=== PATIENT | male | born 1990 | race Two or more races ===

== ENCOUNTER 2024-01-22 13:26 | Emergency (ER) | payer MEDICAID ==
[~2024-01-22] VITALS: Ht 170.2 cm; Wt 72.6 kg
[2024-01-22 13:50] VITALS: BP 135/77; TEMP 98.2; O2SAT 100
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
[2024-01-22 14:13] LABS: BASOPHILS # (AUTO) 0.1 K/uL (0.0-0.2); BASOPHILS % (AUTO) 0.4 % (0.0-2.0); HEMATOCRIT 44 % (39-51); HEMOGLOBIN 14.7 g/dL (13.5-17.5); LYMPHOCYTES # (AUTO) 1.5 K/uL (0.8-4.8); LYMPHOCYTES % (AUTO) 11.2 % (20.0-44.0); MEAN CORPUSCULAR HEMOGLOBIN 31 PG (26.0-33.0); MEAN CORPUSCULAR HGB CONC 34 g/dl (31.0-36.0); MEAN CORPUSCULAR VOLUME 92 fL (80-96); MONOCYTES % (AUTO) 7.3 % (2.0-12.0); NEUTROPHILS % (AUTO) 81.1 % (43.0-81.0); PLATELET COUNT (AUTO) 408 K/uL (150-450); RED BLOOD CELL COUNT(AUTO) 4.72 MIL/uL (4.5-6.0); RED CELL DISTRIBUTION WIDTH 12.7 % (11.5-15.0); WHITE BLOOD COUNT (AUTO) 13.6 K/uL (4.3-11.0)
[2024-01-22 14:20] LABS: CALCIUM, SERUM 9.6 mg/dL (8.5-10.1); CARBON DIOXIDE 21 mmol/L (21-32); CHLORIDE 102 mmol/L (98-107); GLUCOSE 142 mg/dL (74-106); POTASSIUM 2.8 mmol/L (3.5-5.1); SODIUM SERUM 139 mmol/L (136-145); UREA NITROGEN, BLOOD 10 mg/dL (7-18)
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
[2024-01-22 14:27] LABS: ACETAMINOPHEN <10 ug/ml (10-30); ALANINE AMINOTRANSFERASE 41 U/L (12-78); ALBUMIN 4.2 g/dL (3.4-5.0); ALCOHOL, BLOOD < 3 mg/dL (0-10); ALKALINE PHOSPHATASE 129 U/L (46-116); ASPARTATE AMINOTRANSFERASE 95 U/L (15-37); BILIRUBIN,DIRECT 0.4 mg/dL (0.0-0.2); BILIRUBIN,TOTAL 2.3 mg/dL (0.2-1.0); SALICYLATE < 2.8 mg/dL (2.8-20.0); TOTAL PROTEIN, SERUM 7.5 g/dL (6.4-8.2)
--- NOTE | 2024-01-22 14:30 | NUR ---
initiated call to [facility]
--- NOTE | 2024-01-22 14:40 | NUR ---
Spoke with female officer to report patient.
== END 2024-01-22 14:45 | disposition left against medical advice (07) ==
LOC: ER 13:36
DX: R46.2 Strange and inexplicable behavior (principal); Z59.00 Homelessness unspecified
CPT/HCPCS: 36415; 80048-TC; 80076-TC; 85025-TC; G0480

== ENCOUNTER 2024-01-24 00:56 | Emergency (ER) | payer MEDICAID, OTHER ==
[~2024-01-24] VITALS: Ht 170.2 cm; Wt 72.6 kg
--- NOTE | 2024-01-24 03:15 | NUR ---
Patient discharged escorted by [employer] stable condition. Written and verbal after care instructions given. Patient verbalizes understanding of instruction.
[2024-01-24 03:17] VITALS: BP 132/82; TEMP 98; O2SAT 98
== END 2024-01-24 03:31 ==
LOC: ER 00:59
DX: S30.811A Abrasion of abdominal wall, initial encounter (principal); S31.133A Puncture wound of abdominal wall without foreign body, right lower quadrant without penetration into peritoneal cavity, initial encounter; S31.130A Puncture wound of abdominal wall without foreign body, right upper quadrant without penetration into peritoneal cavity, initial encounter; F15.10 Other stimulant abuse, uncomplicated; Z59.00 Homelessness unspecified; X58.XXXA Exposure to other specified factors, initial encounter; Y93.89 Activity, other specified; Y92.89 Other specified places as the place of occurrence of the external cause; Y99.8 Other external cause status